=== PATIENT | female | born 1980 | race African-American/Black ===

== ENCOUNTER 2018-01-14 07:29 | Emergency (ER) | payer SELFPAY ==
[~2018-01-14] VITALS: Ht 152.4 cm; Wt 64.0 kg
[2018-01-14] MEDS ORDERED: ACETAMINOPHEN 325MG TABLET PO PRN (09:30)
[2018-01-14 09:47] LABS: CLARITY URINE CLEAR (CLEAR); COLOR URINE YELLOW (YELLOW); KETONES URINE NEGATIVE (NEGATIVE); LEUKOCYTE ESTERASE URINE NEGATIVE (NEGATIVE); NITRITE URINE NEGATIVE (NEGATIVE); OCCULT BLOOD URINE 3+ (NEGATIVE); PH URINE 7.5 (4.5-8.0); PROTEIN URINE NEGATIVE (NEGATIVE); SPECIFIC GRAVITY URINE 1.019 (1.005-1.030); UROBILINOGEN URINE 0.2 E.U./dL (0.2-1.0)
[2018-01-14 09:54] LABS: BASOPHILS % 0.3 % (0.0-2.0); EOSINOPHILS % 0.4 % (0.0-5.0); HEMATOCRIT. 36.4 % (36.0-48.0); HEMOGLOBIN. 12.3 g/dL (12.0-16.0); LYMPHOCYTES % 14.9 % (20.0-50.0); MEAN CORPUSCULAR HEMOGLOBIN 31.4 pg (28.0-32.0); MEAN CORPUSCULAR VOLUME 92.7 fL (81.0-99.0); MEAN PLATELET VOLUME 9.9 fl (7.4-10.4); MONOCYTES % 5.6 % (2.0-8.0); NEUTROPHILS % 78.8 % (40.0-76.0); PLATELET 243 x1000/uL (130-400); RED BLOOD CELL COUNT 3.92 mill/uL (4.2-5.4); RED CELL DISTRIBUTION WIDTH 15.4 % (11.6-14.6)
[2018-01-14 09:59] LABS: CHLORIDE 102 mEq/L (98-107)
[2018-01-14 10:08] LABS: OPIATES URINE SCREEN NEGATIVE (NEGATIVE)
[2018-01-14 10:09] LABS: *AMPHETAMINES SCREEN URINE NEGATIVE (NEGATIVE); CANNABINOID URINE SCREEN NEGATIVE (NEGATIVE); PHENCYCLIDINE URINE SCREEN NEGATIVE (NEGATIVE)
[2018-01-14 10:12] LABS: *BARBITURATES SCREEN URINE NEGATIVE (NEGATIVE); *BENZODIAZEPINES SCREEN URINE NEGATIVE (NEGATIVE)
[2018-01-14 10:13] LABS: *COCAINE SCREEN URINE NEGATIVE (NEGATIVE); METHADONE URINE SCREEN NEGATIVE (NEGATIVE)
[2018-01-14 10:23] LABS: B-HCG QUANTITATIVE 45844 mIU/mL (<3)
[2018-01-14 11:53] VITALS: BP 116/56
== END 2018-01-14 11:59 | disposition home or self-care (01) ==
LOC: ER 08:27
DX: O20.0 Threatened abortion (principal); O09.521 Supervision of elderly multigravida, first trimester; O26.891 Other specified pregnancy related conditions, first trimester; Z3A.01 Less than 8 weeks gestation of pregnancy
CPT/HCPCS: 36415; 76801; 76817; 80053; 80305; 81003; 81025; 84702; 85025; 86850; 86900; 86901; 99285; Z7610

== ENCOUNTER 2025-01-08 09:46 | Emergency (ER) | payer MEDICAID ==
[~2025-01-08] VITALS: Ht 152.4 cm; Wt 64.0 kg
[2025-01-08 09:55] VITALS: O2SAT 96
[2025-01-08 09:56] VITALS: BP 155/96; PULSE 102; RESP 18; TEMP 36.8; O2SAT 99
[2025-01-08] MEDS ORDERED: FLUC150T46 MT (10:04)
[2025-01-08] MEDS ORDERED: CLOT45CR62 VG (10:04)
== END 2025-01-08 10:19 | disposition home or self-care (01) ==
LOC: ER 09:46
DX: N76.0 Acute vaginitis (principal); Z79.899 Other long term (current) drug therapy
CPT/HCPCS: 99283